=== PATIENT | female | born 1955 | race Hispanic/Latino ===

== ENCOUNTER → 2019-08-18 | Outpatient (CLI) | payer BC | END | disposition home or self-care (01) | LOC: SHCH 13:25 | PROVIDERS: ATTEND Internal Medicine Cardiovascular Disease | DX: I10 Essential (primary) hypertension (principal); I25.10 Atherosclerotic heart disease of native coronary artery without angina pectoris | CPT/HCPCS: 93306 ==

== ENCOUNTER → 2019-08-21 | Outpatient (CLI) | payer BC ==
[~2019-08-21] VITALS: Ht 160 cm; Wt 79.4 kg
[~2019-08-21] MED LIST: REGADENOSON 0.4 MG/5 ML PF SYG IVP SCH
== END | disposition home or self-care (01) ==
LOC: SHCH 08:21
PROVIDERS: ATTEND Internal Medicine Cardiovascular Disease
DX: I25.9 Chronic ischemic heart disease, unspecified (principal); I10 Essential (primary) hypertension
CPT/HCPCS: 78452; 93017; 96374; A9500 ×2; J2785

== ENCOUNTER 2019-09-03 05:58 | Day surgery (SDC) | payer BC ==
[2019-09-01 15:36] VITALS: BP 134/68
[2019-09-01 15:40] LABS: EOSINOPHILS % (AUTO) 1.1 % (0.0-8.0); HEMATOCRIT 37.7 % (36-48); LYMPHOCYTES % (AUTO) 40.2 % (21.0-51.0); MEAN CORPUSCULAR HGB CONC 34.7 g/dL (32.0-36.0); MEAN CORPUSCULAR VOLUME 92.2 fL (79-99); MONOCYTES % (AUTO) 5.5 % (3.0-13.0); NEUTROPHILS % (AUTO) 52.2 % (40.0-77.0); PLATELET COUNT (AUTO) 251 K/uL (130-400); RED BLOOD CELL COUNT(AUTO) 4.09 MIL/uL (4.00-5.50); RED CELL DISTRIBUTION WIDTH 13.2 % (11.0-15.5); WHITE BLOOD COUNT (AUTO) 11.1 K/uL (4.8-10.8)
[2019-09-01 15:40] LABS: APPEARANCE,URINE Clear (CLEAR); BILIRUBIN,URINE Negative (NEGATIVE); COLOR,URINE Yellow (YELLOW); GLUCOSE, URINE (UA) Negative (NEGATIVE); KETONES,URINE Negative (NEGATIVE); LEUKOCYTE ESTERASE ,URINE Negative (NEGATIVE); NITRATE,URINE Negative (NEGATIVE); OCCULT BLOOD,URINE Negative (NEGATIVE); PH,URINE 5.5 (5.0-8.0); PROTEIN,URINE Negative (NEGATIVE); UROBILINOGEN,URINE 0.2 mg/dL (0.2-1.0)
[2019-09-01 15:51] LABS: CREATININE 0.6 mg/dL (0.5-1.5); POTASSIUM 4.1 mmol/L (3.5-5.1)
[2019-09-01 15:55] LABS: INR 0.97 (0.85-1.15); PARTIAL THROMBOPLASTIN TIME 27.1 SEC (26.3-35.5); PROTHROMBIN TIME 10.2 SEC (9.6-11.6)
[~2019-09-03] VITALS: Ht 165.1 cm; Wt 78.7 kg
[2019-09-03] VITALS (19 sets, daily range): BP systolic 103–131; BP diastolic 50–75
[~2019-09-03 05:58] MED LIST changes: +ASPI-1181 PO; +CHOL500050 PO; +HYDR12.54 PO; +LISI-613 PO; +NITR0.4T50 SL; -REGADENOSON 0.4 MG/5 ML PF SYG IVP SCH; +ROSU20TA31 PO
[2019-09-03] MEDS ORDERED: SODIUM CHLORIDE 0.9% 1000ML 1,000 ML IV SCH (08:00)
[2019-09-03] MEDS ORDERED: HEPARIN SODIUM 1000UNIT/ML 10ML VIAL ONE (08:17)
[2019-09-03] MEDS ORDERED: LIDOCAINE HCL 2% 20ML ONE (08:18)
[2019-09-03] MEDS ORDERED: IOHEXOL-350 75 ML VIAL IV ONE (08:18)
[2019-09-03] MEDS ORDERED: IOHEXOL-350 50ML VIAL IV ONE (09:27)
[2019-09-03] MEDS ORDERED: NITROGLYCERIN 4.1 GM SPRAY TL ONE (09:51)
[2019-09-03] MEDS ORDERED: SODIUM CHLORIDE 0.9% 10 ML VIAL IVP SCH (10:15)
[2019-09-03] MEDS ORDERED: ATROPINE SULFATE 0.1 MG/ML 10 ML SYG IVP ONE (10:23)
--- NOTE | 2019-09-03 14:40 | NUR ---
REPORT REPORT RECEIVED FROM CONTRERAS PELLETIER. PT LYING FLAT. RE-INSTRUCTED ON IMPORTANCE OF KEEPING RIGHT LEG STRAIGHT AND NBOT TO LIF HEAD UP OFF OF BED. PT VERBALIZED UNDERSTANDING. PT COMPLAINING OF LOW BACK PAIN FROM LYING FLAT. AYDE PRICE INFORMED OF PAIN. ORDERS RECEIVED TO GIVE TYLENOL#3 2 PILLS PO NOW.
[2019-09-03] MEDS ORDERED: ACETAMINOPHEN-CODEINE 300/30MG TAB PO ONE (15:15)
--- NOTE | 2019-09-03 18:55 | NUR ---
DISCHARGE ORAL AND WRITTEN DISCHARGE INSTRUCTIONS GIVEN TO PT AND PTS . PRESCRIPTION WAS GIVEN TO PRIOR BY Hilton BOO RN. PT RE-INSTRUCTED ON IMPORTANCE OF FOLLOWING INSTRUCTIONS GIVEN BY DR. GARCIA. BOTH VERBALIZED UNDERSTANDING.
== END 2019-09-03 19:00 | disposition home or self-care (01) ==
LOC: DAH 05:58
PROVIDERS: ATTEND Internal Medicine Cardiovascular Disease
DX: I25.118 Atherosclerotic heart disease of native coronary artery with other forms of angina pectoris (principal); R94.39 Abnormal result of other cardiovascular function study; I10 Essential (primary) hypertension; E78.5 Hyperlipidemia, unspecified; Z79.899 Other long term (current) drug therapy; Z90.710 Acquired absence of both cervix and uterus; Z90.49 Acquired absence of other specified parts of digestive tract; Z72.89 Other problems related to lifestyle; Z79.82 Long term (current) use of aspirin; Z79.01 Long term (current) use of anticoagulants; Z87.891 Personal history of nicotine dependence; Z82.49 Family history of ischemic heart disease and other diseases of the circulatory system; Z83.3 Family history of diabetes mellitus; Z82.3 Family history of stroke
CPT/HCPCS: 36415; 71045; 80048; 81003; 85025; 85610; 85730; 93005; 93458; A4215; A4216; A4221; A4222; A4223 ×3; A4606; A4663; C1894; J1644; J3490; J7030; Q9967 ×2; J0461